=== PATIENT | female | born 1965 | race Two or more races ===

== ENCOUNTER 2023-06-03 09:47 | Inpatient (IN) | payer MEDICAID ==
[~2023-06-03] VITALS: Ht 165.1 cm; Wt 66.6 kg
[~2023-06-03 09:47] MED LIST: CITA40TA12 PO; LEVO88TA4 PO; TRAZ-227 PO
[2023-06-03 10:43] LABS: Hematocrit 34.5 % (36.0-46.0); Hemoglobin 11.6 g/dL (12.2-16.2); Mean Corpuscular Hemoglobin 27.8 pg (28.0-32.0); Mean Corpuscular Hgb Conc. 33.5 g/dL (32.0-36.0); Mean Corpuscular Volume 82.7 fL (80.0-100.0); Red Blood Cells 4.17 10^6/uL (4.0-5.20); Red Cell Distribution Width 17.7 % (11.8-14.3)
[2023-06-03 10:56] LABS: Band Neutrophils % (manual) 0; Basophils % (manual) 0 (0.0-2.0); Blast Cells 0; Metamyelocytes % 0; Myelocytes % 0; Promyelocytes % 0; Reactive Lymphocytes 0
[2023-06-03 11:03] LABS: Alanine Aminotransferase 26 U/L (7-40); Albumin 3.8 g/dL (3.2-4.8); Alkaline Phosphatase 80 U/L (46-116); Anion Gap 7 (5-15); Aspartate Aminotransferase 48 U/L (13-40); BUN/Creatinine Ratio 10.8 (10.0-20.0); Blood Urea Nitrogen 7 mg/dL (9-23); Calcium 9.1 mg/dL (8.5-10.1); Carbon Dioxide 22 mmol/L (20-30); Chloride 101 mmol/L (98-107); Glucose 108 mg/dL (74-106); Potassium 3.8 mmol/L (3.5-5.1); Sodium 130 mmol/L (136-145)
[2023-06-03 12:37] LABS: Lymphocytes % (manual) 11 (10.0-50.0)
[2023-06-03 12:38] LABS: Eosinophils % (manual) 1 (0-7); Monocytes % (manual) 22 (0-12); Platelet Estimate Adequate
[2023-06-03] MEDS ORDERED: IOHEXOL 300 MG/ML 100ML BOTTLE IJ ONE (18:08)
[2023-06-03] MEDS ORDERED: DOCUSATE SOD 100 MG CAP PO PRN (22:30)
[2023-06-03] MEDS ORDERED: ONDANSETRON HCL 4 MG/2 ML VIAL IV PRN (22:30)
[2023-06-03] MEDS ORDERED: MORPHINE SULFATE INJ 2 MG/ml SYRG IV PRN (22:30)
[2023-06-03] MEDS ORDERED: SODIUM CHLORIDE 0.9% 1,000 ML IV SCH (22:30)
[2023-06-03] MEDS ORDERED: ACETAMINOPHEN 325 MG TAB PO PRN (22:30)
[2023-06-03] MEDS ORDERED: HYDROcodone-ACET 5/325MG TAB PO PRN (22:30)
[2023-06-03] MEDS ORDERED: DEXTROSE (50%) 50ML SYRG IV PRN (22:30)
[2023-06-04] VITALS (11 sets, daily range): BP systolic 74–111; BP diastolic 51–75; PULSE 72–107; RESP 17–20; TEMP 97.7–99.4; O2SAT 98–100
[2023-06-04] MEDS ORDERED: OMEP1CAP70 PO (01:56)
[2023-06-04] MEDS ORDERED: MAALOX PLUS or MAALOX 30 ML PO PRN (04:45)
[2023-06-04] MEDS: ACCU-CHEK COMFORT CURVE STRIP VI SCH ×4 (06:13→21:12)
[2023-06-04] MEDS: InsuLIN REG 1unit/0.01ml Soln (100units/ml) SC SCH ×4 (06:13→21:12)
[2023-06-04 07:07] LABS: Hematocrit 33.4 % (36.0-46.0); Mean Corpuscular Hgb Conc. 32.9 g/dL (32.0-36.0); Mean Corpuscular Volume 82.1 fL (80.0-100.0); Red Blood Cells 4.07 10^6/uL (4.0-5.20); Red Cell Distribution Width 17.2 % (11.8-14.3); White Blood Cell 5.9 10^3/uL (4.4-10.8)
[2023-06-04 07:26] LABS: Alanine Aminotransferase 30 U/L (7-40); Albumin 3.9 g/dL (3.2-4.8); Alkaline Phosphatase 81 U/L (46-116); Anion Gap 8 (5-15); Aspartate Aminotransferase 47 U/L (13-40); BUN/Creatinine Ratio 14.8 (10.0-20.0); Blood Urea Nitrogen 12 mg/dL (9-23); Calcium 9.4 mg/dL (8.5-10.1); Carbon Dioxide 23 mmol/L (20-30); Chloride 102 mmol/L (98-107); Glucose 128 mg/dL (74-106); Potassium 3.7 mmol/L (3.5-5.1); Sodium 133 mmol/L (136-145)
[2023-06-04 07:27] LABS: Bilirubin, Total 1.2 mg/dL (0.2-1.0)
[2023-06-04 08:20] LABS: Band Neutrophils % (manual) 0; Basophils % (manual) 0 (0.0-2.0); Metamyelocytes % 0; Myelocytes % 0; Promyelocytes % 0; Reactive Lymphocytes 0
[2023-06-04] MEDS: FAMOTIDINE (10MG/ML) 2ML VL IV SCH (09:40)
[2023-06-04] MEDS: D5W/SOD CHLO 0.9% 1,000 ML IV SCH ×2 (11:16→20:30)
[2023-06-04 13:06] LABS: Blast Cells 1; Eosinophils % (manual) 1 (0-7); Lymphocytes % (manual) 7 (10.0-50.0); Monocytes % (manual) 19 (0-12); Platelet Estimate Adequate
[2023-06-04 15:39] LABS: Urine Bacteria MANY /hpf (None Seen); Urine Blood 2+ /uL (Negative); Urine Clarity HAZY (Clear); Urine Color Yellow (Yellow); Urine Mucus FEW (None Seen); Urine Protein, UAD 1+ (Negative); Urine WBC 5 /hpf (0 - 5)
[2023-06-05] MEDS: D5W/SOD CHLO 0.9% 1,000 ML IV SCH ×2 (00:09→16:30)
[2023-06-05 05:00] VITALS: BP 93/61; PULSE 100; RESP 18; TEMP 98.5; O2SAT 96
[2023-06-05 06:05] LABS: Hematocrit 30.5 % (36.0-46.0); Mean Corpuscular Hemoglobin 27.2 pg (28.0-32.0); Mean Corpuscular Hgb Conc. 32.8 g/dL (32.0-36.0); Mean Corpuscular Volume 83.1 fL (80.0-100.0); Red Blood Cells 3.67 10^6/uL (4.0-5.20); Red Cell Distribution Width 17.8 % (11.8-14.3); White Blood Cell 4.4 10^3/uL (4.4-10.8)
[2023-06-05 06:06] LABS: AFP Serum Tumor Marker <1.8 ng/mL (0.0-9.2); Cancer Antigen (CA) 125 23.2 U/mL (0.0-38.1)
[2023-06-05 06:08] LABS: Basophils % (manual) 0 (0.0-2.0); Blast Cells 0; Eosinophils % (manual) 0 (0-7); Metamyelocytes % 0; Myelocytes % 0; Promyelocytes % 0; Reactive Lymphocytes 0
[2023-06-05 06:13] LABS: INR 1.19 (0.9-1.15); Partial Thromboplastin Time 26.4 SEC (24.5-34.5); Prothrombin Time 12.4 sec (9.3-11.8)
[2023-06-05 06:26] LABS: Alanine Aminotransferase 24 U/L (7-40); Albumin 3.3 g/dL (3.2-4.8); Alkaline Phosphatase 70 U/L (46-116); Anion Gap 6 (5-15); Aspartate Aminotransferase 33 U/L (13-40); BUN/Creatinine Ratio 9.2 (10.0-20.0); Bilirubin, Total 0.5 mg/dL (0.2-1.0); Blood Urea Nitrogen 6 mg/dL (9-23); Calcium 8.5 mg/dL (8.5-10.1); Carbon Dioxide 24 mmol/L (20-30); Chloride 105 mmol/L (98-107); Cholesterol 118 mg/dL (< 200); Glucose 143 mg/dL (74-106); HDL Cholesterol 5 mg/dL (40-59); LDL Cholesterol 65 mg/dL (< 100); Potassium 4.1 mmol/L (3.5-5.1); Sodium 135 mmol/L (136-145); Total Protein 5.9 g/dL (5.7-8.2); Triglycerides 235 mg/dL (< 150)
[2023-06-05] MEDS: ACCU-CHEK COMFORT CURVE STRIP VI SCH ×4 (06:35→22:04)
[2023-06-05] MEDS: InsuLIN REG 1unit/0.01ml Soln (100units/ml) SC SCH ×4 (06:36→22:05)
[2023-06-05 06:41] LABS: Band Neutrophils % (manual) 1; Lymphocytes % (manual) 12 (10.0-50.0); Monocytes % (manual) 22 (0-12); Platelet Estimate Adequate
[2023-06-05 06:48] LABS: Lipase 69 U/L (12-53)
[2023-06-05 06:49] LABS: Magnesium 1.8 mg/dL (1.6-2.6)
[2023-06-05 08:00] VITALS: PULSE 85; RESP 19; O2SAT 95
[2023-06-05 09:00] VITALS: BP 100/62; PULSE 85; RESP 19; TEMP 97.9; O2SAT 95
[2023-06-05] MEDS: FAMOTIDINE (10MG/ML) 2ML VL IV SCH (10:05)
[2023-06-05 17:00] VITALS: BP 100/64; PULSE 80; RESP 19; TEMP 97.9; O2SAT 95
[2023-06-05 20:00] VITALS: BP 105/62; PULSE 98; RESP 22; TEMP 99.2; O2SAT 96
[2023-06-05 22:00] VITALS: BP 105/62; PULSE 98; RESP 22; TEMP 99.2; O2SAT 96
[2023-06-06] MEDS: D5W/SOD CHLO 0.9% 1,000 ML IV SCH ×2 (04:22→12:30)
[2023-06-06 05:14] VITALS: BP 103/64; PULSE 81; RESP 20; TEMP 98.4; O2SAT 97
[2023-06-06] MEDS: ACCU-CHEK COMFORT CURVE STRIP VI SCH ×4 (06:18→22:00)
[2023-06-06] MEDS: InsuLIN REG 1unit/0.01ml Soln (100units/ml) SC SCH ×4 (06:19→22:00)
[2023-06-06 08:00] VITALS: PULSE 76; RESP 20; O2SAT 98
[2023-06-06] MEDS: FAMOTIDINE (10MG/ML) 2ML VL IV SCH (09:12)
[2023-06-06 13:57] VITALS: BP 88/59; PULSE 75; RESP 16; TEMP 97.9; O2SAT 97
[2023-06-06 17:06] VITALS: BP 97/66; PULSE 66; RESP 18; TEMP 97.9; O2SAT 100
[2023-06-06 20:00] VITALS: BP 89/52; PULSE 81; RESP 20; TEMP 98.1; O2SAT 98
[2023-06-06 21:56] VITALS: BP 91/53; PULSE 81; RESP 20; TEMP 98.1; O2SAT 98
[2023-06-07] VITALS (7 sets, daily range): BP systolic 87–102; BP diastolic 55–71; PULSE 71–94; RESP 16–20; TEMP 97.8–99.3; O2SAT 96–99
[2023-06-07] MEDS: D5W/SOD CHLO 0.9% 1,000 ML IV SCH
[2023-06-07] MEDS: ACCU-CHEK COMFORT CURVE STRIP VI SCH ×4 (07:10→21:53)
[2023-06-07] MEDS: InsuLIN REG 1unit/0.01ml Soln (100units/ml) SC SCH ×4 (07:11→21:53)
[2023-06-07 08:18] LABS: Hematocrit 31.9 % (36.0-46.0); Hemoglobin 10.5 g/dL (12.2-16.2); Mean Corpuscular Hemoglobin 27.2 pg (28.0-32.0); Mean Corpuscular Hgb Conc. 33.1 g/dL (32.0-36.0); Mean Corpuscular Volume 82.2 fL (80.0-100.0); Red Blood Cells 3.87 10^6/uL (4.0-5.20); Red Cell Distribution Width 17.8 % (11.8-14.3); White Blood Cell 3.7 10^3/uL (4.4-10.8)
[2023-06-07 08:25] LABS: Band Neutrophils % (manual) 0; Basophils % (manual) 0 (0.0-2.0); Blast Cells 0; Metamyelocytes % 0; Myelocytes % 0; Promyelocytes % 0; Reactive Lymphocytes 0
[2023-06-07 08:29] LABS: Chloride 104 mmol/L (98-107); Sodium 137 mmol/L (136-145)
[2023-06-07 08:30] LABS: Anion Gap 7 (5-15); Carbon Dioxide 26 mmol/L (20-30)
[2023-06-07 08:31] LABS: Calcium 9.2 mg/dL (8.5-10.1)
[2023-06-07 08:35] LABS: Glucose 122 mg/dL (74-106)
[2023-06-07 08:41] LABS: BUN/Creatinine Ratio 8.6 (10.0-20.0); Blood Urea Nitrogen < 5 mg/dL (9-23)
[2023-06-07 09:05] LABS: Eosinophils % (manual) 2 (0-7); Lymphocytes % (manual) 17 (10.0-50.0); Monocytes % (manual) 16 (0-12); Platelet Estimate Adequate
[2023-06-07 09:11] LABS: Hepatitis B Surface Antigen Negative (Negative)
[2023-06-07 09:32] LABS: Hepatitis A Ab IgM Negative; Hepatitis B Core IgM Negative
[2023-06-07 09:33] LABS: Hepatitis C Antibody Negative (Negative)
[2023-06-07] MEDS: FAMOTIDINE (10MG/ML) 2ML VL IV SCH (10:11)
[2023-06-07] MEDS: cefTRIAXone 1GM/50ML D5W 50 ML IV SCH (10:11)
[2023-06-07 17:23] LABS: COVID19 ANTIGEN SOFIA FIA NEGATIVE (NEGATIVE)
[2023-06-08] VITALS (7 sets, daily range): BP systolic 90–103; BP diastolic 47–64; PULSE 80–105; RESP 16–19; TEMP 97.9–98.8; O2SAT 94–98
[2023-06-08] MEDS: ACCU-CHEK COMFORT CURVE STRIP VI SCH ×4 (07:00→21:09)
[2023-06-08] MEDS: InsuLIN REG 1unit/0.01ml Soln (100units/ml) SC SCH ×4 (07:00→21:16)
[2023-06-08] MEDS: FAMOTIDINE (10MG/ML) 2ML VL IV SCH (10:16)
[2023-06-08] MEDS: cefTRIAXone 1GM/50ML D5W 50 ML IV SCH (10:16)
[2023-06-08] MEDS ORDERED: CITALOPRAM HYDROBR 20 MG TAB PO SCH (22:00)
[2023-06-09 02:15] VITALS: BP 92/47; PULSE 105; RESP 19; TEMP 98; O2SAT 97
[2023-06-09] MEDS ORDERED: LEVOTHYROXINE SODIUM 88 MCG TAB PO SCH (07:00)
[2023-06-09] MEDS ORDERED: CITALOPRAM HYDROBR 20 MG TAB PO SCH (10:00)
== END 2023-06-09 03:35 | disposition short-term general hospital (02) | DRG 281 ==
LOC: ER 09:47 → OVERFLOW 23:58 → EAST 06-04 01:35
PROVIDERS: ADMIT Nurse Practitioner Family; ATTEND Internal Medicine Geriatric Medicine
DX: C22.9 Malignant neoplasm of liver, not specified as primary or secondary (principal); R64 Cachexia; E87.1 Hypo-osmolality and hyponatremia; R31.9 Hematuria, unspecified; N39.0 Urinary tract infection, site not specified; B96.20 Unspecified Escherichia coli [E. coli] as the cause of diseases classified elsewhere; D64.9 Anemia, unspecified; E78.5 Hyperlipidemia, unspecified; G89.29 Other chronic pain; E03.9 Hypothyroidism, unspecified; Z20.822 Contact with and (suspected) exposure to COVID-19; K21.9 Gastro-esophageal reflux disease without esophagitis; M19.90 Unspecified osteoarthritis, unspecified site; Z80.1 Family history of malignant neoplasm of trachea, bronchus and lung; Z80.3 Family history of malignant neoplasm of breast; Z85.828 Personal history of other malignant neoplasm of skin; Z87.891 Personal history of nicotine dependence; Z90.710 Acquired absence of both cervix and uterus; Z68.24 Body mass index [BMI] 24.0-24.9, adult; Z90.49 Acquired absence of other specified parts of digestive tract
CPT/HCPCS: 36415; 71046; 74176; 74177; 74181; 80048; 80053; 80061; 80074; 81001; 82105; 82140; 82378; 82962; 83690; 83735; 84436; 84443; 84481; 85007; 85027; 85610; 85730; 86301; 86304; 87040; 87086; 87088; 87186; 87426; 93005; G0378; J0696; J1815; J3490; J7042

== ENCOUNTER 2023-08-28 10:48 | Inpatient (IN) | payer MEDICAID ==
[~2023-08-28] VITALS: Ht 162.6 cm; Wt 58.1 kg
[~2023-08-28 10:48] MED LIST changes: +OMEP1CAP70 PO; -TRAZ-227 PO
[2023-08-28 11:49] VITALS: PULSE 75; RESP 12; O2SAT 98
[2023-08-28 12:10] LABS: Hemoglobin 9.6 g/dL (12.2-16.2); Mean Corpuscular Hemoglobin 24.5 pg (28.0-32.0)
[2023-08-28 12:11] LABS: Hematocrit 29.9 % (36.0-46.0); Mean Corpuscular Hgb Conc. 32.1 g/dL (32.0-36.0); Mean Corpuscular Volume 76.4 fL (80.0-100.0); Red Blood Cells 3.92 10^6/uL (4.0-5.20); White Blood Cell 5.9 10^3/uL (4.4-10.8)
[2023-08-28 12:15] LABS: Basophils % (manual) 0 (0.0-2.0); Blast Cells 0; Eosinophils % (manual) 0 (0-7); Myelocytes % 0; Promyelocytes % 0; Reactive Lymphocytes 0
[2023-08-28 12:27] LABS: INR 1.3 (0.9-1.15); Partial Thromboplastin Time 29.9 SEC (24.5-34.5); Prothrombin Time 13.4 sec (9.3-11.8)
[2023-08-28] MEDS: SODIUM CHLORIDE 0.9% 1,000 ML IV ONE (12:52)
[2023-08-28 13:08] LABS: Alanine Aminotransferase 139 U/L (7-40); Alkaline Phosphatase 257 U/L (46-116); Anion Gap 7 (5-15); Aspartate Aminotransferase 244 U/L (13-40); BUN/Creatinine Ratio 20.4 (10.0-20.0); Blood Urea Nitrogen 11 mg/dL (9-23); Calcium 8.9 mg/dL (8.7-10.4); Carbon Dioxide 25 mmol/L (20-30); Chloride 94 mmol/L (98-107); Glucose 184 mg/dL (74-106); Magnesium 1.7 mg/dL (1.6-2.6); Potassium 3.6 mmol/L (3.5-5.1); Sodium 126 mmol/L (136-145)
[2023-08-28 13:09] LABS: Albumin 2.9 g/dL (3.2-4.8); Bilirubin, Total 0.9 mg/dL (0.2-1.0); Total Protein 6.2 g/dL (5.7-8.2)
[2023-08-28 13:17] LABS: Band Neutrophils % (manual) 2; Lymphocytes % (manual) 7 (10.0-50.0); Metamyelocytes % 1; Monocytes % (manual) 13 (0-12); Platelet Estimate Adequate
[2023-08-28 14:50] LABS: Urine Bacteria FEW /hpf (None Seen); Urine Blood TRACE /uL (Negative); Urine Clarity Clear (Clear); Urine Color Yellow (Yellow); Urine Protein, UAD Negative (Negative); Urine Specific Gravity 1.007 (1.001-1.035); Urine Urobilinogen Normal (Negative); Urine WBC 1 /hpf (0 - 5); Urine pH 5.5 (5.0-8.0)
[2023-08-28] MEDS: IOHEXOL 350 MG/ML 100ML IJ ONE (16:26)
[2023-08-28] MEDS: SODIUM CHLORIDE 0.9% 500 ML IVB ONE (18:59)
[2023-08-28] MEDS: LEVOTHYROXINE SODIUM 100 MCG/5 ML INJ IV ONE (19:00)
[2023-08-28 19:30] VITALS: PULSE 98; RESP 16; O2SAT 99
[2023-08-28] MEDS ORDERED: ONDANSETRON HCL 4 MG/2 ML VIAL IV PRN (20:45)
[2023-08-28] MEDS ORDERED: DOCUSATE SOD 100 MG CAP PO PRN (20:45)
[2023-08-28] MEDS ORDERED: DEXTROSE (50%) 50ML SYRG IV PRN (20:45)
[2023-08-28] MEDS ORDERED: ACETAMINOPHEN 325 MG TAB PO PRN (20:45)
[2023-08-28] MEDS: ALBUMIN 25% 100 ML IV ONE (21:14)
[2023-08-28] MEDS: FAMOTIDINE (10MG/ML) 2ML VL IV SCH (22:32)
[2023-08-28] MEDS: KETOROLAC TROMETH 30 MG/ML 1ML VIAL IV ONE (22:32)
[2023-08-28] MEDS ORDERED: MORPHINE SULFATE INJ 2 MG/ml SYRG IV PRN (23:00)
[2023-08-28] MEDS ORDERED: NITROGLYCERIN 0.4 MG SL TAB SL PRN (23:00)
[2023-08-28] MEDS: SODIUM CHLORIDE 0.9% 1,000 ML IV SCH (23:05)
[2023-08-28] MEDS: ACCU-CHEK COMFORT CURVE STRIP VI SCH (23:18)
[2023-08-28] MEDS: InsuLIN REG 1unit/0.01ml Soln (100units/ml) SC SCH (23:18)
[2023-08-29] VITALS (8 sets, daily range): BP systolic 96–137; BP diastolic 59–77; PULSE 82–97; RESP 17–19; TEMP 97.3–98.5; O2SAT 94–100
[2023-08-29] MEDS: ENOXAPARIN SOD 40 MG/0.4 ML SYRINGE SC ONE (04:42)
[2023-08-29] MEDS ORDERED: ACET-6 PO (06:22)
[2023-08-29] MEDS: InsuLIN REG 1unit/0.01ml Soln (100units/ml) SC SCH (06:27)
[2023-08-29] MEDS: LEVOTHYROXINE SODIUM 88 MCG TAB PO SCH (06:27)
[2023-08-29] MEDS: PNEUMOCOCCAL VACC POLYS 25 MCG/0.5 ML VIAL IM ONE (06:29)
[2023-08-29 06:32] LABS: Alanine Aminotransferase 97 U/L (7-40); Albumin 3.2 g/dL (3.2-4.8); Alkaline Phosphatase 198 U/L (46-116); Anion Gap 6 (5-15); Aspartate Aminotransferase 127 U/L (13-40); BUN/Creatinine Ratio 22.4 (10.0-20.0); Blood Urea Nitrogen 11 mg/dL (9-23); Calcium 9.6 mg/dL (8.7-10.4); Carbon Dioxide 26 mmol/L (20-30); Chloride 97 mmol/L (98-107); Glucose 105 mg/dL (74-106); Potassium 3.9 mmol/L (3.5-5.1); Sodium 129 mmol/L (136-145)
[2023-08-29 06:34] LABS: Bilirubin, Total 0.7 mg/dL (0.2-1.0); Hematocrit 28.8 % (36.0-46.0); Hemoglobin 9.2 g/dL (12.2-16.2); Mean Corpuscular Hemoglobin 24.7 pg (28.0-32.0); Mean Corpuscular Hgb Conc. 31.9 g/dL (32.0-36.0); Mean Corpuscular Volume 77.3 fL (80.0-100.0); Red Blood Cells 3.72 10^6/uL (4.0-5.20); Total Protein 6.5 g/dL (5.7-8.2); White Blood Cell 6.9 10^3/uL (4.4-10.8)
[2023-08-29 06:46] LABS: Red Cell Distribution Width 21.2 % (11.8-14.3)
[2023-08-29 06:47] LABS: Basophils % (manual) 0 (0.0-2.0); Blast Cells 0; Eosinophils % (manual) 0 (0-7); Metamyelocytes % 0; Myelocytes % 0; Reactive Lymphocytes 0
[2023-08-29 12:17] LABS: Band Neutrophils % (manual) 11; Lymphocytes % (manual) 8 (10.0-50.0); Monocytes % (manual) 13 (0-12); Promyelocytes % 1
[2023-08-29 12:18] LABS: Platelet Estimate Adequate
[2023-08-29] MEDS: HYDROcodone-ACET 5/325MG TAB PO PRN (16:44)
[2023-08-30 05:00] VITALS: BP 138/73; PULSE 99; RESP 19; TEMP 99.7; O2SAT 98
[2023-08-30 06:42] LABS: Basophils # (auto) 0 10 ^3/uL (0-0.2); Eosinophils # (auto) 0 10 ^3/uL (0-0.8); Monocytes # (auto) 0.9 10 ^3/uL (0-1.3); Neutrophils # (auto) 5.1 10 ^3/uL (1.6-8.6); White Blood Cell 6.8 10^3/uL (4.4-10.8)
[2023-08-30 06:44] LABS: Basophils % (auto) 0.7 % (0.0-2.0); Eosinophils % (auto) 0.2 % (0.0-7.0); Hematocrit 29.5 % (36.0-46.0); Hemoglobin 9.3 g/dL (12.2-16.2); Lymphocytes # (auto) 0.8 10 ^3/uL (0.4-5.4); Lymphocytes % (auto) 11.6 % (10.0-50.0); Mean Corpuscular Hgb Conc. 31.6 g/dL (32.0-36.0); Mean Corpuscular Volume 75.9 fL (80.0-100.0); Monocytes % (auto) 12.6 % (0.0-12.0); Neutrophils % (auto) 74.9 % (37.0-80.0); Red Blood Cells 3.89 10^6/uL (4.0-5.20)
[2023-08-30 07:00] LABS: Alanine Aminotransferase 71 U/L (7-40); Albumin 3.2 g/dL (3.2-4.8); Alkaline Phosphatase 198 U/L (46-116); Anion Gap 7 (5-15); Aspartate Aminotransferase 78 U/L (13-40); BUN/Creatinine Ratio 16.7 (10.0-20.0); Blood Urea Nitrogen 8 mg/dL (9-23); Calcium 9.4 mg/dL (8.7-10.4); Carbon Dioxide 25 mmol/L (20-30); Chloride 98 mmol/L (98-107); Glucose 91 mg/dL (74-106); Magnesium 1.6 mg/dL (1.6-2.6); Potassium 4.3 mmol/L (3.5-5.1); Sodium 130 mmol/L (136-145)
[2023-08-30 07:01] LABS: Bilirubin, Total 0.6 mg/dL (0.2-1.0); Total Protein 6.6 g/dL (5.7-8.2)
[2023-08-30 07:52] LABS: Red Cell Distribution Width 21.7 % (11.8-14.3)
[2023-08-30 08:00] VITALS: BP 111/71; PULSE 109; RESP 20; TEMP 97.9; O2SAT 97
[2023-08-30 13:00] VITALS: BP 110/72; PULSE 106; RESP 19; TEMP 97.8; O2SAT 98
[2023-08-30] MEDS: PANTOPRAZOLE 40 MG TAB PO ONE (14:58)
[2023-08-30 17:00] VITALS: BP 140/77; PULSE 127; RESP 19; TEMP 97.8; O2SAT 99
[2023-08-30 20:00] VITALS: PULSE 126; RESP 19; O2SAT 99
[2023-08-30 21:30] VITALS: BP 129/70; PULSE 99; RESP 18; TEMP 97.9; O2SAT 99
[2023-08-30] MEDS: ENOXAPARIN SOD 40 MG/0.4 ML SYRINGE SC SCH (21:39)
[2023-08-31 05:00] VITALS: BP 118/74; PULSE 115; RESP 16; TEMP 98.8; O2SAT 95
[2023-08-31 08:00] VITALS: PULSE 100; PULSE 105; RESP 20; O2SAT 96
[2023-08-31 09:00] VITALS: BP 103/68; PULSE 105; RESP 20; TEMP 98.3; O2SAT 96
[2023-08-31] MEDS: PANTOPRAZOLE 40 MG TAB PO SCH (11:05)
[2023-08-31] MEDS: fentaNYL CITRATE 100 MCG/2 ML VL IV ONE (11:35)
[2023-08-31] MEDS: MIDAZOLAM HCL 2MG/2ML 2ml VIAL (1mg/ml) IV ONE (11:35)
[2023-08-31 13:00] VITALS: BP 102/57; PULSE 99; RESP 20; TEMP 98.2; O2SAT 96
[2023-08-31 20:10] VITALS: PULSE 89; O2SAT 99
[2023-08-31 22:00] VITALS: BP 87/55; PULSE 84; RESP 16; TEMP 98.4; O2SAT 98
[2023-09-01] VITALS (10 sets, daily range): BP systolic 88–112; BP diastolic 50–88; PULSE 92–118; RESP 16–18; TEMP 97.8–99; O2SAT 95–99
[2023-09-01] MEDS: LIDOCAINE 2%HCL (LOCAL ANESTH.) INJ 10ml MDV ONE (03:48)
[2023-09-01] MEDS: GADOTERATE MEG 10 MMOL/20ml INJ (0.5MMOL/ml) IV ONE (03:48)
[2023-09-02 05:00] VITALS: BP 93/50; PULSE 104; RESP 16; TEMP 98.1; O2SAT 98
[2023-09-02 07:02] LABS: Alanine Aminotransferase 41 U/L (7-40); Albumin 2.9 g/dL (3.2-4.8); Alkaline Phosphatase 166 U/L (46-116); Anion Gap 6 (5-15); Aspartate Aminotransferase 65 U/L (13-40); BUN/Creatinine Ratio 18.4 (10.0-20.0); Bilirubin, Total 0.8 mg/dL (0.2-1.0); Blood Urea Nitrogen 9 mg/dL (9-23); Calcium 9.6 mg/dL (8.7-10.4); Carbon Dioxide 25 mmol/L (20-30); Chloride 96 mmol/L (98-107); Glucose 99 mg/dL (74-106); Magnesium 1.4 mg/dL (1.6-2.6); Potassium 4.2 mmol/L (3.5-5.1); Sodium 127 mmol/L (136-145); Total Protein 6.3 g/dL (5.7-8.2)
[2023-09-02 07:09] LABS: Hematocrit 26.7 % (36.0-46.0); Hemoglobin 8.6 g/dL (12.2-16.2); Mean Corpuscular Hgb Conc. 32.1 g/dL (32.0-36.0); Mean Corpuscular Volume 74.7 fL (80.0-100.0); White Blood Cell 5.2 10^3/uL (4.4-10.8)
[2023-09-02 07:12] LABS: Red Blood Cells 3.57 10^6/uL (4.0-5.20)
[2023-09-02 07:13] LABS: Band Neutrophils % (manual) 0; Basophils % (manual) 0 (0.0-2.0); Blast Cells 0; Eosinophils % (manual) 0 (0-7); Metamyelocytes % 0; Promyelocytes % 0; Reactive Lymphocytes 0; Red Cell Distribution Width 21.8 % (11.8-14.3)
[2023-09-02 07:46] LABS: CRP High Sensitivity 9.21 mg/dL (<1.0)
[2023-09-02 08:00] VITALS: BP 94/52; PULSE 107; RESP 18; TEMP 99; O2SAT 95
[2023-09-02 08:41] LABS: Lymphocytes % (manual) 6 (10.0-50.0); Monocytes % (manual) 14 (0-12); Myelocytes % 1; Platelet Estimate Adequate
[2023-09-02 08:42] LABS: Anisocytosis Slight; Hypochromia Slight
[2023-09-02] MEDS: MAGNESIUM SULFATE 1GM/100ML 100 ML IV SCH (09:31)
[2023-09-02] MEDS: CITALOPRAM HYDROBR 20 MG TAB PO SCH (09:31)
[2023-09-02 09:59] VITALS: BP 108/61; PULSE 107; RESP 15; TEMP 97.9; O2SAT 96
[2023-09-02 12:45] VITALS: BP 92/55; PULSE 101; RESP 15; TEMP 98.3; O2SAT 94
[2023-09-02 16:47] VITALS: BP 107/55; PULSE 107; RESP 16; TEMP 98.8; O2SAT 93
[2023-09-02 17:23] VITALS: BP 107/55; PULSE 102; RESP 18; TEMP 98.2; O2SAT 98
[2023-09-02] MEDS ORDERED: ARIP2TAB PO (17:53)
[2023-09-05 09:00] VITALS: BP 132/61; PULSE 92; RESP 16; TEMP 98.1; O2SAT 97
== END 2023-09-02 18:00 | disposition home health service (06) | DRG 691 ==
LOC: ER 10:48 → TELE 22:51 → TELE-WESTW 08-29 03:54 → WEST WING 09-01 14:43
PROVIDERS: ADMIT Internal Medicine Geriatric Medicine; ATTEND Internal Medicine Geriatric Medicine
PROC: 079T3ZX Drainage of Bone Marrow, Percutaneous Approach, Diagnostic (ICD-10-PCS; principal; 2023-08-31)
DX: C81.90 Hodgkin lymphoma, unspecified, unspecified site (principal); G93.41 Metabolic encephalopathy; D68.9 Coagulation defect, unspecified; E44.0 Moderate protein-calorie malnutrition; E86.1 Hypovolemia; E87.1 Hypo-osmolality and hyponatremia; D63.8 Anemia in other chronic diseases classified elsewhere; Z68.22 Body mass index [BMI] 22.0-22.9, adult; E03.9 Hypothyroidism, unspecified; E11.65 Type 2 diabetes mellitus with hyperglycemia; E78.5 Hyperlipidemia, unspecified; F20.9 Schizophrenia, unspecified; R79.89 Other specified abnormal findings of blood chemistry; K21.9 Gastro-esophageal reflux disease without esophagitis; R19.00 Intra-abdominal and pelvic swelling, mass and lump, unspecified site; R59.1 Generalized enlarged lymph nodes; F17.210 Nicotine dependence, cigarettes, uncomplicated; F31.9 Bipolar disorder, unspecified; Z80.1 Family history of malignant neoplasm of trachea, bronchus and lung; Z80.3 Family history of malignant neoplasm of breast; Z81.8 Family history of other mental and behavioral disorders; Z90.710 Acquired absence of both cervix and uterus; Z91.199 Patient's noncompliance with other medical treatment and regimen due to unspecified reason
CPT/HCPCS: 10005; 36415; 70553; 71045; 71275; 72192; 77012; 78582; 80053; 81001; 82962; 83036; 83735; 84443; 84484; 85007; 85025; 85027; 85379; 85610; 85730; 86141; 93005; 93306; 96365; 96375; 97110; 97116; 97163; G0378; J1815; J1885; J2001; J2250; J3490; P9047